=== PATIENT | male | born 1960 | race Caucasian/White ===

== ENCOUNTER 2020-08-10 22:01 | Inpatient (IN) | payer OTHER ==
[2020-08-10 22:13] VITALS: BMI 25.2
--- OUTSIDE RECORDS SUMMARY | 2020-08-10 22:17 | XMS ---
:1960 [facility] Support Name Relationship Address Phone UE, UNEMPLOYED Unavailable Unavailable Unavailable DARIELA GILLIS [address] [place] [address] AZDARIELA VAZQUEZ [address] [place] [address] JESSI GILLIS [address] [place] [address] UE Unavailable Unavailable Unavailable JESSI MCKEON [address] [place] [address] Re-disclosure Warning The records that you are about to access may contain information from federally- assisted alcohol or drug abuse programs. If such information is present, then the following federally mandated warning applies: This information has been disclosed to you from records protected by federal confidentiality rules (42 CFR part 2). The federal rules prohibit you from making any further disclosure of this information unless further disclosure is expressly permitted by the written consent of the person to whom it pertains or as otherwise permitted by 42 CFR part 2. A general authorization for the release of medical or other information is NOT sufficient for this purpose. The Federal rules restrict any use of the information to criminally investigate or prosecute any alcohol or drug abuse patient.The records that you are about to access may contain highly sensitive health information, the redisclosure of which is protected by Article 27-F of the [facility] Public Health law. If you continue you may haveaccess to information: Regarding HIV / AIDS; Provided by facilities licensed or operated by the [facility] Office of Mental Health; or Provided by the [facility] Office for People With Developmental Disabilities. If such information is present, then the following [facility] mandated warning applies: This information has been disclosed to you from confidential records which are protected by state law. State law prohibits you from making any further disclosure of this information without the specific written consent of the person to whom it pertains, or as otherwise permitted by law. Any unauthorized further disclosure in violation of state law may result in a fine or senior care sentence or both. A general authorization for the release of medical or other information is NOT sufficient authorization for further disclosure. Insurance Providers Payer name Policy type Policy ID Covered Covered libertarian's Policy P johnny / Coverage libertarian ID relationship to Almar[employer] Inf ormation type almaraz MEDICARE [id number] SP [id number] MEDICARE [id number] SP [id number]
--- NOTE | 2020-08-10 22:48 | PDOC ---
Attending Attestation - Resident Resident Name: James Moser - ED Attending Attestation I have performed the following: I have examined & evaluated the patient, The case was reviewed & discussed with the resident, I agree w/resident's findings & plan, Exceptions are as noted - HPI HPI: 08/11/20 04:46 See resident HPI - Physicial Exam PE: 08/11/20 04:46 Agree with documented exam - Medical Decision Making 08/11/20 04:46 Consider chf exacerbation, r/o acs, less likely pna, infection, complication of dissection f/u labs, ekg, cxr, trop, ct dispo per clinical course Discharge - Discharge Information Problems reviewed: Yes Clinical Impression/Diagnosis: Acute exacerbation of CHF (congestive heart failure) Condition: Improved - Follow up/Referral - Patient Discharge Instructions - Post Discharge Activity
[2020-08-10 23:18] LABS: BASO % 0.5 % (0-2.0); EOS % 4.5 % (0-4.5); HEMATOCRIT 38.7 % (35.4-49); HEMOGLOBIN 12.7 GM/dL (11.7-16.9); LYMPH % 10.4 % (8-40); MCH 26.8 pg (25.7-33.7); MCHC 32.7 g/dl (32.0-35.9); MEAN CELL VOLUME 81.9 fl (80-96); MEAN PLT VOLUME 7.5 fl (7.5-11.1); MONO % 10.1 % (3.8-10.2); NEUT % 74.5 % (42.8-82.8); PLATELET COUNT 180 K/MM3 (134-434); RBC 4.73 M/mm3 (4.00-5.60); WHITE BLOOD COUNT 10.2 K/mm3 (4.0-10.0)
[2020-08-10 23:27] LABS: INR 1.44 (0.83-1.09); PROTHROMBIN TIME (PATIENT) 17.1 SEC (9.7-13.0)
[2020-08-10 23:29] LABS: ACTIVATED PTT 30.8 SECONDS (25.2-36.5)
--- NOTE | 2020-08-10 23:56 | PDOC ---
History of Present Illness - General Chief Complaint: Congestive Heart Failure Stated Complaint: SOB Time Seen by Provider: 08/10/20 22:19 - History of Present Illness Initial Comments: 08/10/20 23:32 HPI: 59 y/o M with hx of HF, TAVR (2002), type B aortic dissection and thoracic aortic aneurysm (dxd 2018 and medically managed with BP control and [id number] CTA) presenting with 3weeks of progressively worsening SOB. Patient reports no specific triggers. Reports PND and orthopnea and inability to sleep flat. Reports cough with clear sputum. He denies chest pain, [place], syncope, n/v, fever, chills, abd pain, dysuria. Of note, patient has not gotten his routine CTA for the past 9months due to covid. PMHx: as noted above ROS: as noted SHx: Denies tobacco use; no alcohol use; no rec drugs Allergies: NKDA PCP: Bibi Eric Cardio: Anirudh Watts ROS: GENERAL/CONSTITUTIONAL: No fever or chills. No weakness. HEAD, EYES, EARS, NOSE AND THROAT: No change in vision. No ear pain or discharge. No sore throat. CARDIOVASCULAR: No chest pain; + shortness of breath RESPIRATORY: +cough; no wheezing, or hemoptysis. GASTROINTESTINAL: No nausea, vomiting, diarrhea or constipation. GENITOURINARY: No dysuria, frequency, or change in urination. MUSCULOSKELETAL: No joint or muscle swelling or pain. No neck or back pain. SKIN: No rash NEUROLOGIC: No headache, vertigo, loss of consciousness, or change in strength/sensation. ENDOCRINE: No increased thirst. No abnormal weight change HEMATOLOGIC/LYMPHATIC: No anemia, easy bleeding, or history of blood clots. ALLERGIC/IMMUNOLOGIC: No hives or skin allergy. PE: GENERAL: Awake, alert, and fully oriented, no acute distress HEAD: No signs of trauma, normocephalic, atraumatic EYES: EOMI, sclera anicteric, conjunctiva clear ENT: Auricles normal inspection, hearing grossly normal, nares patent, oropharynx clear without exudates. Moist mucosa NECK: Normal ROM, no lymphadenopathy LUNGS: No increased work of breathing, symmetrical chest rise, BL basilar rales HEART: Regular rate, regular rhythm, normal S1 and S2, no murmur, peripheral pulses 2+ and equal bilaterally. ABDOMEN: Soft, nondistended, nontender. No guarding, no rebound. No masses. No CVAT MUSCULOSKELETAL: FROM NEUROLOGICAL: Cranial nerves II through XII grossly intact. Normal speech, stable gait, no focal sensorimotor deficits SKIN: Warm, Dry, normal turgor, no rashes or lesions noted Past History - Medical History Allergies/Adverse Reactions: Allergies Allergy/AdvReac Type Severity Reaction Status Date / Time No Known Allergies Allergy Verified 08/10/20 23:15 Home Medications: Ambulatory Orders Aspirin [Aspirin EC] 81 mg PO DAILY 08/10/20 Atorvastatin Ca [Lipitor] 20 mg PO HS 08/10/20 Furosemide 40 mg PO DAILY 08/10/20 Metoprolol Tartrate [Lopressor] 100 mg PO BID 08/10/20 Niacin*ER* [Niaspan (Non-Formulary) -] 1 tab PO BID 08/10/20 Sacubitril/Valsartan [Entresto 49 mg-51 mg Tablet] 1 each PO BID 08/10/20 Cardiac Disorders: Yes (CHF) COPD: No - Surgical History Cardiac Surgery: Yes (aortic rep) - Psycho-Social/Smoking History Smoking History: Former smoker Have you smoked in the past 12 months: No If you are a former smoker, when did you quit?: 2001 Information on smoking cessation initiated: No - Substance Abuse Hx (Audit-C & DAST Scrn) How often the patient has a drink containing alcohol: Never Score: In Men: 4 or > Positive; In Women: 3 or > Positive: 0 Screen Result (Pos requires Nsg. Audit-10AR): Negative In the last yr the pt used illegal drug/Rx for NonMed reason: No Score: Yes response is considered Positive: 0 Screen Result (Positive result requires Nsg. DAST-10): Negative *Physical Exam - Vital Signs Last Vital Signs Temp Pulse Resp BP Pulse Ox 98 F 86 19 106/45 L 98 08/10/20 22:08 08/10/20 22:08 08/10/20 22:08 08/10/20 22:08 08/10/20 22:08 ED Treatment Course - LABORATORY CBC & Chemistry Diagram: 08/10/20 23:11 08/10/20 23:11 - ADDITIONAL ORDERS Additional order review: Laboratory Results 08/10/20 08/10/20 23:11 23:11 WBC 10.2 H RBC 4.73 Hgb 12.7 Hct 38.7 MCV 81.9 MCH 26.8 MCHC 32.7 RDW 17.0 H Plt Count 180 MPV 7.5 Absolute Neuts (auto) 7.6 Neutrophils % 74.5 Lymphocytes % 10.4 Monocytes % 10.1 Eosinophils % 4.5 Basophils % 0.5 Nucleated RBC % 0 PT with INR 17.10 H INR 1.44 H PTT (Actin FS) 30.8 08/10/20 23:11 RBC 4.73 MCV 81.9 MCHC 32.7 RDW 17.0 H MPV 7.5 Neutrophils % 74.5 Lymphocytes % 10.4 Monocytes % 10.1 Eosinophils % 4.5 Basophils % 0.5 - RADIOLOGY Radiology Studies Ordered: Category Date Time Status CTA CHEST ABD PEL W/WO CONT [CT] Stat CT Scan 08/10/20 22:51 Ordered CXRPORT [CHEST X-RAY PORTABLE*] [RAD] Stat Radiology 08/10/20 22:33 Ordered Medical Decision Making - Medical Decision Making 08/11/20 03:34 59 y/o M with hx of HF, TAVR (2001), type B aortic dissection and thoracic aortic aneurysm (dxd 2018 and medically managed with BP control and [id number] CTA) presenting with 3weeks of progressively worsening SOB associated with cough, orthopnea, and PND. BP106/45 HR 86 sats 98%, AF. PE with bibasilar rales. DDx includes ACS, CHF exac, PNA, dissection. -cbc, cmp, coags, card prof, ekg, cxr, CTA -lasix 08/11/20 03:42 CXR with cephalization and increased vascular markings; no effuison or consolidation ekg at 22:58 nsr with winston in v3 and avr with depression in 2, v5, v6 and twi in 2, v5, v6; trop negative; patient still denying any chest pain, jaw pain, arm pain; sxs improved following lasix 08/11/20 03:45 rpt ekg 00:11 nsr with no winston but persistent std in v5,v6 and persistent twi in 2, v5, v6 and now v6 showing dynamic changes, PVCs present; patient still completely asx with no chest pain 08/11/20 03:49 ekg 0224 nsr unchanged from 0011; rpt trops negative; pt remains asx admitted to tele under dr anne for chf exac Discharge - Discharge Information Problems reviewed: Yes Clinical Impression/Diagnosis: Acute exacerbation of CHF (congestive heart failure) Condition: Improved - Admission Yes - Follow up/Referral Referrals: Bibi Eric MD [Primary Care Provider] - - Patient Discharge Instructions - Post Discharge Activity
[2020-08-10] MEDS ORDERED: FUROSEMIDE 40 MG/4 ML INJECTABLE VIAL IVPUSH ONE (23:58)
[2020-08-10] MEDS ORDERED: FUROSEMIDE 40 MG/4 ML INJECTABLE VIAL ONE (23:58)
[2020-08-11 00:02] LABS: ALBUMIN 3.4 g/dl (3.4-5.0); BILIRUBIN,TOTAL 0.8 mg/dL (0.2-1); BLOOD UREA NITROGEN 27.2 mg/dL (7-18); CALCIUM 8.8 mg/dL (8.5-10.1); CREATININE 1.3 mg/dL (0.55-1.3); MAGNESIUM 2.3 mg/dL (1.8-2.4); POTASSIUM 4.6 mmol/L (3.5-5.1); TOT PROT 7.2 g/dl (6.4-8.2)
--- NOTE | 2020-08-11 03:08 | PN ---
Teaching Attending Note Name of Resident: Ivet Kelley ATTENDING PHYSICIAN STATEMENT I saw and evaluated the patient. I reviewed the resident's note and discussed the case with the resident. I agree with the resident's findings and plan as documented. SUBJECTIVE: Patient is 59 year old man with a PMH of HFrEF, HLD, TAVR (2001) and Type B aortic dissection and thoracic aortic aneurysm (diagnosed in 2018 and medically managed with BP control and q 3month CTA) presenting with 3 weeks of progressively worsening SOB. Patient reports no specific triggers. Has associated PND and orthopnea and inability to sleep flat. Of note, patient has not gotten his routine CTA for the past 9 months due to the COVID-19 pandemic. Patient reports cough with clear sputum and associated left arm/shoulder pain. He denies chest pain, headache, syncope, abdominal pain, headache, palpitations, dizziness, fever, chills, nausea, vomiting, diarrhea, constipation, dysuria, frequency, urgency, melena, hematochezia or hematuria. Former smoker. Denies alcohol, tobacco or illicit drug use. No sick contacts or recent travels. Family history of heart disease in father and brother. OBJECTIVE: Alert Vital Signs Period Temp Pulse Resp BP Sys/Leyva Pulse Ox Last 24 Hr 98 F 83-86 19-20 106-108/45-72 98-98 HEENT: No Jaundice, eye redness or discharge, PERRLA, EOMI. Normocephalic, atraumatic. External ears are normal and hearing is grossly intact. No nasal discharge. Neck: Supple, nontender. No palpable adenopathy or thyromegaly. No JVD Chest: Good effort. Bibasilar rales. Clear to percussion. Heart: Regular. No S3, rub or murmur Abdomen: Not distended, soft, nontender and no HSM. No rebound or guarding. Normal bowel sounds. Ext: Peripheral pulses intact. No leg edema. Skin: Warm and dry. No petechiae, rash or ecchymosis. Neuro: Alert. Oriented x3. CN 2-12 grossly intact. Sensation grossly intact in all four extremities and DTR are symmetric. Psych: Appropriate mood and affect. Good insight. Home Medications Medication Instructions Recorded Aspirin [Aspirin EC] 81 mg PO DAILY 08/10/20 Atorvastatin Ca [Lipitor] 20 mg PO HS 08/10/20 Furosemide 40 mg PO DAILY 08/10/20 Metoprolol Tartrate [Lopressor] 100 mg PO BID 08/10/20 Niacin*ER* [Niaspan 1 tab PO BID 08/10/20 (Non-Formulary) -] Sacubitril/Valsartan [Entresto 49 1 each PO BID 08/10/20 mg-51 mg Tablet] Abnormal Lab Results 08/10/20 08/10/20 08/10/20 23:11 23:11 23:11 WBC 10.2 H RDW 17.0 H PT with INR 17.10 H INR 1.44 H BUN 27.2 H Random Glucose 116 H B-Natriuretic Peptide 7702.0 H Current Medications Generic Name Dose Route Start Last Admin Trade Name Freq PRN Reason Stop Dose Admin Enoxaparin Sodium 40 mg 08/11/20 10:00 Lovenox - SQ DAILY LANEY Furosemide 40 mg 08/11/20 06:30 08/11/20 06:30 Lasix Injection - IVPUSH Not Given DAILY LANEY ASSESSMENT AND PLAN: 1. CHF exacerbation - No obvious precipitating factor. Urinalysis pending. CXR shows cardiomegaly with increased interstitial markings, unfolded aorta and sternotomy dilan. CTA of chest/abdomen/pelvis was not completed because the machine broke down. Viral testing for COVID-19 ordered and patient placed on airborne, droplet and contact isolation. EKG shows NSR at 85/minute, LVH, PVCs and QTc 497 with nonspecfic T wave changes. Not significantly changed compared to prior EKG. Initial troponin is negative. Will avoid drugs that may prolong QTc. Will admit to telemetry, get urinalysis, trend troponin, repeat EKG, treat with IV Lasix, get ECHO, restrict dietary salt intake, monitor renal function, monitor and replete electrolytes, get daily weight and consult Cardiology. Will continue comprehensive care for all of patients comorbid conditions. 2. DVT prophylaxis - Lovenox 40 mg SQ q 24 hours. 3. Advance directives - Full code
--- OUTSIDE RECORDS SUMMARY | 2020-08-11 04:00 | XMS ---
:1960 [facility] Support Name Relationship Address Phone UE, UNEMPLOYED Unavailable Unavailable Unavailable DARIELA GILLIS [address] [place] [address] AZDARIELA VAZQUEZ [address] [place] [address] JESSI GILLIS [address] [place] [address] UE Unavailable Unavailable Unavailable JESSI MCKEON [address] [place] [address] Re-disclosure Warning The records that you are [...] is protected by Article 27-F of the [facility] Public Health law. If you continue you may haveaccess to information: Regarding HIV / AIDS; Provided by facilities licensed or operated by the [facility] Office of Mental Health; or Provided by the [facility] Office for People With Developmental Disabilities. If such information is present, then the following [facility] mandated warning applies: This information has been [...] law may result in a fine or fci sentence or both. A general authorization for the release of medical or other information is NOT sufficient authorization for further disclosure. Insurance Providers Payer name Policy type Policy ID Covered Covered green party's Policy P johnny / Coverage green party ID relationship to [employer]mar[employer] Inf ormation type almaraz MEDICARE [id number] SP [id number] MEDICARE [id number] SP [id number]
--- NOTE | 2020-08-11 05:13 | HP ---
CHIEF COMPLAINT: Dyspnea, cough PCP: Dr. Bibi Eric, Cardio: Dr. Anirudh Watts HISTORY OF PRESENT ILLNESS: Naz is a 59 year old man with PMH aortic valve replacement (2001), type B aortic dissection diagnosed in 2018 that is managed with BP and CTA every 3 months) presenting with worsening dyspnea and cough. He states dyspnea began 3 weeks ago, and has progressed within the last weeks to the point he is no longer walking much even within his home. He also describes worsening orthopnea, is now sleeping upright in his arm chair in the living room. Around the same time the dyspnea began to worsen, he began to cough and started bringing up whitish colored sputum that is frequently tinged with streaks of blood. Yesterday he began having episodes of severe left arm pain and a feeling of associated 'heaviness in the arm', pain rated 10/10, lasting for a few minutes then subsiding. This continued throughout the day yesterday, and was very worrisome for the patient, which prompted the ED visit. He denies fever, chills, headache, lightheadedness, abdominal pain, vomiting, diarrhea, hematochezia, melena. He has not had his CTA done (for surveillance of the aortic dissection for the past 9 months due to fears of COVID. ER course was notable for: - Stable vitals: T98, BP 108/72, HR 83, O2 SAT 98 on room air - Labs notable for elevated BNP to 7000+, mild white count 10.2, BUN 27.2, Creatinine 1.3 - CXR: cardiomegaly and increased vascular markings - EKG with ST depressions and t wave inversions in V5, V6 - Administration of Lasix Recent Travel:no PAST MEDICAL HISTORY: HF Type B aortic dissection and thoracic aortic aneurysm (diagnosed 2018, medically managed, does CTA every 3 mo) PAST SURGICAL HISTORY: TAVR Social History: Smoking:no Alcohol:NO Drugs:NO Allergies No Known Allergies Allergy (Verified 08/10/20 23:15) HOME MEDICATIONS: Home Medications Medication Instructions Recorded Aspirin [Aspirin EC] 81 mg PO DAILY 08/10/20 Atorvastatin Ca [Lipitor] 20 mg PO HS 08/10/20 Furosemide 40 mg PO DAILY 08/10/20 Metoprolol Tartrate [Lopressor] 100 mg PO BID 08/10/20 Niacin*ER* [Niaspan 1 tab PO BID 08/10/20 (Non-Formulary) -] Sacubitril/Valsartan [Entresto 49 1 each PO BID 08/10/20 mg-51 mg Tablet] REVIEW OF SYSTEMS SEE HPI PHYSICAL EXAMINATION Vital Signs - 24 hr 08/10/20 08/11/20 22:08 03:29 Temperature 98 F Pulse Rate 86 Pulse Rate [ 83 Left] Respiratory 19 20 Rate Blood Pressure 106/45 L Blood Pressure 108/72 [Left Arm] O2 Sat by Pulse 98 98 Oximetry (%) GENERAL: Sleeping in no acute distress. HEAD: Normal with no signs of trauma. EYES: Pupils equal, round and reactive to light EARS, NOSE, THROAT: Ears normal, nares patent, oropharynx clear without exudates. NECK: Normal range of motion, supple without lymphadenopathy LUNGS: Breath sounds equal, clear to auscultation bilaterally. HEART: Regular rate and rhythm with diastolic murmur at the right sternal border . ABDOMEN: Soft, nontender, not distended, normoactive bowel sounds, no guarding, no rebound, no masses. UPPER EXTREMITIES: 2+ pulses, warm, well-perfused. No cyanosis. No clubbing. No peripheral edema. LOWER EXTREMITIES: 2+ pulses, warm, well-perfused. No calf tenderness. No peripheral edema. PSYCHIATRIC: Cooperative. Good eye contact. Appropriate mood and affect. Laboratory Results - last 24 hr 08/10/20 08/10/20 08/10/20 23:11 23:11 23:11 WBC 10.2 H RBC 4.73 Hgb 12.7 Hct 38.7 MCV 81.9 MCH 26.8 MCHC 32.7 RDW 17.0 H Plt Count 180 MPV 7.5 Absolute Neuts (auto) 7.6 Neutrophils % 74.5 Lymphocytes % 10.4 Monocytes % 10.1 Eosinophils % 4.5 Basophils % 0.5 Nucleated RBC % 0 PT with INR 17.10 H INR 1.44 H PTT (Actin FS) 30.8 Sodium 137 Potassium 4.6 Chloride 104 Carbon Dioxide 24 Anion Gap 9 BUN 27.2 H Creatinine 1.3 Est GFR (CKD-EPI)AfAm 69.22 Est GFR (CKD-EPI)NonAf 59.72 Random Glucose 116 H Calcium 8.8 Magnesium 2.3 Total Bilirubin 0.8 AST 26 ALT 46 Alkaline Phosphatase 80 Creatine Kinase 154 Creatine Kinase Index 1.1 CK-MB (CK-2) 1.7 Troponin I 0.03 B-Natriuretic Peptide 7702.0 H Total Protein 7.2 Albumin 3.4 08/11/20 02:12 WBC RBC Hgb Hct MCV MCH MCHC RDW Plt Count MPV Absolute Neuts (auto) Neutrophils % Lymphocytes % Monocytes % Eosinophils % Basophils % Nucleated RBC % PT with INR INR PTT (Actin FS) Sodium Potassium Chloride Carbon Dioxide Anion Gap BUN Creatinine Est GFR (CKD-EPI)AfAm Est GFR (CKD-EPI)NonAf Random Glucose Calcium Magnesium Total Bilirubin AST ALT Alkaline Phosphatase Creatine Kinase Creatine Kinase Index CK-MB (CK-2) Troponin I 0.03 B-Natriuretic Peptide Total Protein Albumin ASSESSMENT/PLAN: Naz is a 59 year old man with PMH aortic valve replacement (2001), type B aortic dissection diagnosed in 2018 that is managed with BP and CTA every 3 months) presenting with worsening dyspnea and cough, being admitted with CHF exacerbation. #CHF exacerbation - CXR: cardiomegaly and increased vascular markings - BNP elevated to 7000+ - Responded to Lasix in ED - One time does of 40 Lasix ordered for this morning 08/11 - Cardio consulted - f/u third troponin - ECHO - Daily weights #Type B aortic dissection and thoracic aortic aneurysm - Diagnosed 2017; treated with metoprolol and CTA surveillance every 3 months - Has not had CTA in 9 months (due to COVID fears) - F/u CTA #DONALD - Creatinine 1.3 - F/U UA DVT prophylaxis: Lovenox FEN - No standing fluids - monitor electrolytes - Low sodium diet Dispo: tele FULL CODE Family Medical History Family History: As Documented Visit type - Emergency Visit Emergency Visit: Yes ED Registration Date: 08/11/20 Care time: The patient presented to the Emergency Department on the above date and was hospitalized for further evaluation of their emergent condition. - New Patient This patient is new to me today: Yes Date on this admission: 08/11/20 - Critical Care Critical Care patient: No ATTENDING PHYSICIAN STATEMENT I saw and evaluated the patient. I reviewed the resident's note and discussed the case with the resident. I agree with the resident's findings and plan as documented. SUBJECTIVE: OBJECTIVE: ASSESSMENT AND PLAN:
[2020-08-11 06:30] LABS: URINE APPEARANCE CLEAR; URINE BILIRUBIN NEGATIVE (NEGATIVE); URINE COLOR YELLOW; URINE GLUCOSE (UA) NEGATIVE (NEGATIVE); URINE KETONE NEGATIVE (NEGATIVE); URINE LEUK ESTERASE NEGATIVE (NEGATIVE); URINE NITRITE NEGATIVE (NEGATIVE); URINE PROTEIN NEGATIVE (NEGATIVE); URINE UROBILINOGEN 0.2 mg/dL (0.2-1.0)
[2020-08-11] MEDS ORDERED: FUROSEMIDE 40 MG/4 ML INJECTABLE VIAL IVPUSH SCH (06:30)
--- NOTE | 2020-08-11 06:50 | CON.CARD ---
Consult - Smoking History Smoking history: Former smoker Have you smoked in the past 12 months: No If you are a former smoker, when did you quit?: 2001 Home Medications - Allergies Allergies/Adverse Reactions: Allergies Allergy/AdvReac Type Severity Reaction Status Date / Time No Known Allergies Allergy Verified 08/10/20 23:15 - Home Medications Home Medications: Ambulatory Orders Aspirin [Aspirin EC] 81 mg PO DAILY 08/10/20 Atorvastatin Ca [Lipitor] 20 mg PO HS 08/10/20 Furosemide 40 mg PO DAILY 08/10/20 Metoprolol Tartrate [Lopressor] 100 mg PO BID 08/10/20 Niacin*ER* [Niaspan (Non-Formulary) -] 1 tab PO BID 08/10/20 Sacubitril/Valsartan [Entresto 49 mg-51 mg Tablet] 1 each PO BID 08/10/20 Vital Signs: Vital Signs Temperature 98 F 08/10/20 22:08 Pulse Rate 88 08/11/20 06:19 Respiratory Rate 20 08/11/20 06:19 Blood Pressure 101/46 L 08/11/20 06:19 O2 Sat by Pulse Oximetry (%) 97 08/11/20 06:19 - Other Data Labs, Other Data: CBC, BMP 08/10/20 23:11 08/10/20 23:11 INR, PTT INR 1.44 (0.83-1.09) H 08/10/20 23:11 Troponin, BNP 08/10/20 08/11/20 23:11 02:12 Troponin I 0.03 0.03 B-Natriuretic Peptide 7702.0 H Troponin, BNP 08/10/20 08/11/20 23:11 02:12 Troponin I 0.03 0.03 B-Natriuretic Peptide 7702.0 H
--- NOTE | 2020-08-11 07:08 | CON.CARD ---
Consult Consult Specialty:: Cardiology Referred by:: Dr Tang Reason for Consultation:: CHF - History of Present Illness Chief Complaint: SOB and cough History of Present Illness: 59M PMH bio AVR 2002 and chronic type B aortic dissection diagnosed in 2018 under surveillance presents to ER with 1-2 weeks increased PEACE, orthopnea and cough. No fever/chills/edema/chest pain/syncope/palps/ no prior hx CAD. BNP markedly elevated. Clinically mildly improved after receiving a dose of 40mg IV Lasix yesterday evening in ER currently with O2 saturation 97% RA. Has had to sleep on several pillows, not usual for him . 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: Alzheimer's, CVA, Dementia, Migraine, Multiple Sclerosis, Peripheral Neuropathy, Parkinson's, Seizure, Syncope, TIA, Vertigo, Other Cardio/Vascular: Yes: Other (AVR/ type B dissection) Pulmonary: No: Asthma, Bronchitis, Cancer, COPD, O2 Dependent, Pneumonia, Previously Intubated, Pulmonary Embolus, Pulmonary Fibrosis, Sleep Apnea, Other Gastrointestinal: No: Ascites, Cancer, Constipation, Crohn's Disease, Div erticulitis, Diverticulosis, Esophageal Varices, Gastritis, GERD, GI Bleed, Hemorrhoids, Hiatal Hernia, Inflamatory Bowel Disease, Irritable Bowel Disease, Pancreatitis, Peptic Ulcer Disease, Ulcerative Colitis, Other Hepatobiliary: No: Cirrhosis, Cholelithiasis, Cholecystitis, Choledocholithiasis, Hepatitis A, Hepatitis B, Hepatitis C, Other Renal/: No: Renal Failure, Renal Inusuff, BPH, Cancer, Hematuria, Hemodialysis, Neurogenic Bladder, Renal Calculi, UTI, Other Heme/Onc: No: Anemia, B12 Deficiency, Bleeding Disorder, Cancer, Current Chemotherapy, Current Radiation Therapy, Hemochromatosis, Hypercoaguable State, Myeloproliferative Synd, Sickle Cell Disease, Sickle Cell Trait, Thrombocytopenia, Other Infectious Disease: No: AIDS, C-Diff, Herpes Zoster, HIV, MRSA, STD's, Tuberculosis, VREF, Other Psych: No: Addictions, Anxiety, Bipolar, Depression, Panic, Psychosis, Schizophrenia, Other Musculoskeletal: No: Bursitis, Chronic low back pain, Hemiparesis, Hemiplegia, Osteoarthritis, Paraplegia, Other Rheumatology: No: Fibromyalgia, Gout, Lupus, Rheumatoid Arthritis, Sarcoidosis, Vasculitis, Other ENT: No: Allergic Rhinitis, Sinusitis, Other - Past Surgical History Past Surgical History: Yes: Valve Replacement - Alcohol/Substance Use Hx Alcohol Use: No History of Substance Use: reports: None - Smoking History Smoking history: Former smoker Have you smoked in the past 12 months: No If you are a former smoker, when did you quit?: 2001 - Social History Usual Living Arrangement: Other (with brother) Occupation: Disabled History of Recent Travel: No Home Medications - Allergies Allergies/Adverse Reactions: Allergies Allergy/AdvReac Type Severity Reaction Status Date / Time No Known Allergies Allergy Verified 08/10/20 23:15 - Home Medications Home Medications: Ambulatory Orders Aspirin [Aspirin EC] 81 mg PO DAILY 08/10/20 Atorvastatin Ca [Lipitor] 20 mg PO HS 08/10/20 Furosemide 40 mg PO DAILY 08/10/20 Metoprolol Tartrate [Lopressor] 100 mg PO BID 08/10/20 Niacin*ER* [Niaspan (Non-Formulary) -] 1 tab PO BID 08/10/20 Sacubitril/Valsartan [Entresto 49 mg-51 mg Tablet] 1 each PO BID 08/10/20 Family Medical History Family History: Unremarkable Review of Systems Findings/Remarks: see HPI - Review of Systems Constitutional: reports: No Symptoms Eyes: reports: No Symptoms HENT: reports: No Symptoms Neck: reports: No Symptoms Cardiovascular: reports: Shortness of Breath Respiratory: reports: Cough, Exercise Intolerance, Orthopnea Gastrointestinal: denies: No Symptoms, Abdominal Pain, Bloating, Constipation, Diarrhea, Dysphagia, Indigestion, Melena, Nausea, Rectal Bleeding, Vomiting, Vomiting Blood, Other Genitourinary: denies: No Symptoms, Burning, Discharge, Dysuria, Flank Pain, Frequency, Hematuria, Incontinence, Lesions, Menses, Pain, Testicular Mass, Testicular Pain, Testicular Swelling, Urgency, Vaginal Bleeding, Other Breasts: denies: No Symptoms Reported, See HPI, Breast Implants, Discharge from Nipple, Lumps, Pain, Skin Changes, Other Musculoskeletal: denies: No Symptoms, Back Pain, Crepitus, Decreased ROM, Extremity Pain, Joint Pain, Joint Swelling, Muscle Pain, Muscle Cramps, Muscle Weakness, Other Integumentary: denies: No Symptoms, Blister, Bruising, Change in Color, Eczema, Erythema, Incision, Lesions, Lump, Pallor, Pruritis, Rash, Wound, Other Neurological: denies: No Symptoms, Change in LOC, Change in Speech, Confusion, Dizziness, Headache, Incoordination, Numbness, Parasthesia, Pre-Existing Deficit, Seizure, Syncope, Tremors, Unsteady Gait, Weakness, Other Endocrine: denies: No Symptoms, Excessive Sweating, Flushing, Increased Hunger, Increased Thirst, Intolerance to Cold, Intolerance to Heat, Unexplained Weight Gain, Unexplained Weight Loss, Other Hematology/Lymphatic: denies: No Symptoms, Easily Bruised, Excessive Bleeding, Swollen Glands, Other Psychiatric: denies: No Symptoms, Altered Sleep Pattern, Anxiety, Depression, Hallucinations, Panic, Paranoia, Suicidal, Other - Risk Factors Known Risk Factors: Yes: Age, Hypercholesterolemia, Hypertension, Smoking Vital Signs: Vital Signs Temperature 98 F 08/10/20 22:08 Pulse Rate 88 08/11/20 06:19 Respiratory Rate 20 08/11/20 06:19 Blood Pressure 101/46 L 08/11/20 06:19 O2 Sat by Pulse Oximetry (%) 97 08/11/20 06:19 Constitutional: Yes: No Distress, Calm Eyes: Yes: Conjunctiva Clear HENT: Yes: Atraumatic, Normocephalic Neck: Yes: Trachea Midline Respiratory: Yes: Other (bibasilar rales 1/3 up) Gastrointestinal: Yes: Soft Cardiovascular: Yes: Regular Rate and Rhythm JVD: Yes Heart Sounds: Yes: S1, S2 Murmur: Yes: Systolic Murmur, Diastolic Murmur, Grade 2 Edema: No Peripheral Pulses WNL: Yes Neurological: Yes: Alert, Oriented ...Motor Strength: WNL Psychiatric: Yes: WNL - Other Data Labs, Other Data: CBC, BMP 08/10/20 23:11 08/10/20 23:11 INR, PTT INR 1.44 (0.83-1.09) H 08/10/20 23:11 Troponin, BNP 08/10/20 08/11/20 23:11 02:12 Troponin I 0.03 0.03 B-Natriuretic Peptide 7702.0 H Troponin, BNP 08/10/20 08/11/20 23:11 02:12 Troponin I 0.03 0.03 B-Natriuretic Peptide 7702.0 H Serial ecgs were performed in ER and were personally reviewed. They show NSR with lvh, lae, nsst I, avL, avF, v4-v6 that were unchanged Echo: Pending Imaging - Results Chest X-ray: Report Reviewed, Image Reviewed Cat Scan: Pending EKG: Image Reviewed Assessment/Plan IMP: Bio AVR Chronic type B dissection Acute CHF: systolic vs diastolic? Systolic and diastolic murmurs c/w likely /AR REC: 1. Bio AVR: -Cont ASA 81mg daily -Echo to evaluate EF and prosthetic valve fx 2. Chronic type B dissection: -under surveillance as outpatient -F/u official CTA result done in ER last night -Cont beta elizabeth, would reduce dose by 50% in light of acute CHF decompensation and borderline low BPS with need for additional IV Lasix -Once euvolemic and BP stable/ can resume full home dose especially if EF normal 3. Acute CHF: -Echo today for EF assessment -IV Lasix -Daily weights and BMP on tele -Supp O2 -Hold entresto for now as we re-evaluate EF and diurese. Can resume in next 24- 48 hours pending clinical course and EF assessment 4. Systolic/diastolic murmurs: suspect /AR -Echo for prosthetic valve fx 5. Cough: likely due to decomp CHF -COVID swab pending
--- NOTE | 2020-08-11 08:16 | PDOC ---
*Physical Exam - Vital Signs Last Vital Signs Temp Pulse Resp BP Pulse Ox 97.5 F L 74 19 104/42 L 99 08/11/20 08:11 08/11/20 08:11 08/11/20 08:11 08/11/20 08:11 08/11/20 08:11 ED Treatment Course - LABORATORY CBC & Chemistry Diagram: 08/10/20 23:11 08/10/20 23:11 - ADDITIONAL ORDERS Additional order review: Laboratory Results 08/11/20 08/10/20 08/10/20 02:12 23:11 23:11 PT with INR 17.10 H INR 1.44 H PTT (Actin FS) 30.8 Sodium 137 Potassium 4.6 Chloride 104 Carbon Dioxide 24 Anion Gap 9 BUN 27.2 H Creatinine 1.3 Est GFR (CKD-EPI)AfAm 69.22 Est GFR (CKD-EPI)NonAf 59.72 Random Glucose 116 H Calcium 8.8 Magnesium 2.3 Total Bilirubin 0.8 AST 26 ALT 46 Alkaline Phosphatase 80 Creatine Kinase 154 Creatine Kinase Index 1.1 CK-MB (CK-2) 1.7 Troponin I 0.03 0.03 B-Natriuretic Peptide 7702.0 H Total Protein 7.2 Albumin 3.4 08/10/20 23:11 RBC 4.73 MCV 81.9 MCHC 32.7 RDW 17.0 H MPV 7.5 Neutrophils % 74.5 Lymphocytes % 10.4 Monocytes % 10.1 Eosinophils % 4.5 Basophils % 0.5 - Medications Given in the ED: ED Medications Discontinued Medications Generic Name Dose Route Start Last Admin Trade Name Freq PRN Reason Stop Dose Admin Furosemide 40 mg 08/10/20 23:58 08/11/20 00:10 Lasix Injection - IVPUSH 08/10/20 23:59 40 mg ONCE ONE Administration Medical Decision Making - Medical Decision Making CT reads showed unchanged aortic dissection from prior reads, 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 Pt seen by cardiology team. 08/11/20 08:15 Discharge - Discharge Information Problems reviewed: Yes Clinical Impression/Diagnosis: Acute exacerbation of CHF (congestive heart failure) Qualifiers: Heart failure type: unspecified Qualified Code(s): I50.9 - Heart failure, unspecified Condition: Improved - Follow up/Referral - Patient Discharge Instructions - Post Discharge Activity
[2020-08-11] MEDS ORDERED: FUROSEMIDE 40 MG/4 ML INJECTABLE VIAL ONE (08:22)
[2020-08-11] MEDS ORDERED: ENOXAPARIN NA (PORCINE) 40 MG/0.4 ML DISP.SYRIN SQ ONE (08:22)
[2020-08-11] MEDS ORDERED: ASPIRIN 81 MG CHEWABLE TABLETS PO SCH (10:00)
[2020-08-11] MEDS ORDERED: METOPROLOL TARTRATE 50 MG TABLET (FP) PO SCH (10:00)
[2020-08-11] MEDS ORDERED: ENOXAPARIN NA (PORCINE) 40 MG/0.4 ML DISP.SYRIN SQ SCH (10:00)
[2020-08-11] MEDS ORDERED: ASPIRIN 81 MG CHEWABLE TABLETS ONE (10:08)
[2020-08-11] MEDS ORDERED: METOPROLOL TARTRATE 50 MG TABLET (FP) ONE (10:09)
--- NOTE | 2020-08-11 10:32 | EKG ---
Test Reason : Blood Pressure : / mmHG Vent. Rate : 085 BPM Atrial Rate : 085 BPM P-R Int : 172 ms QRS Dur : 120 ms QT Int : 418 ms P-R-T Axes : 063 042 242 degrees QTc Int : 497 ms POOR DATA QUALITY, INTERPRETATION MAY BE ADVERSELY AFFECTED SINUS RHYTHM WITH OCCASIONAL PREMATURE VENTRICULAR COMPLEXES LEFT VENTRICULAR HYPERTROPHY WITH QRS WIDENING AND REPOLARIZATION ABNORMALITY ABNORMAL ECG Confirmed by ARMANDO MOORE MD ([id number]) on 08/11/2020 10:32:31 AM Referred By: Confirmed By:ARMANDO MOORE MD
--- NOTE | 2020-08-11 10:33 | EKG ---
Test Reason : Blood Pressure : / mmHG Vent. Rate : 084 BPM Atrial Rate : 084 BPM P-R Int : 154 ms QRS Dur : 108 ms QT Int : 400 ms P-R-T Axes : 016 020 209 degrees QTc Int : 472 ms POOR DATA QUALITY, INTERPRETATION MAY BE ADVERSELY AFFECTED NORMAL SINUS RHYTHM LEFT VENTRICULAR HYPERTROPHY WITH REPOLARIZATION ABNORMALITY ABNORMAL ECG WHEN COMPARED WITH ECG OF 10-AUG-2020 22:57, FUSION COMPLEXES ARE NO LONGER PRESENT PREMATURE VENTRICULAR COMPLEXES ARE NO LONGER PRESENT Confirmed by ARMANDO MOORE MD ([id number]) on 08/11/2020 10:32:56 AM Referred By: JESSIE Confirmed By:ARMANDO MOORE MD
--- NOTE | 2020-08-11 10:33 | EKG ---
Test Reason : Blood Pressure : / mmHG Vent. Rate : 088 BPM Atrial Rate : 088 BPM P-R Int : 180 ms QRS Dur : 120 ms QT Int : 400 ms P-R-T Axes : 052 035 171 degrees QTc Int : 484 ms SINUS RHYTHM WITH OCCASIONAL PREMATURE VENTRICULAR COMPLEXES AND FUSION COMPLEXES LEFT VENTRICULAR HYPERTROPHY WITH QRS WIDENING AND REPOLARIZATION ABNORMALITY ABNORMAL ECG NO PREVIOUS ECGS AVAILABLE Confirmed by ARMANDO MOORE MD ([id number]) on 08/11/2020 10:33:28 AM Referred By: Confirmed By:ARMANDO MOORE MD
--- NOTE | 2020-08-11 10:52 | ECHO ---
Version: 1 Name: ARIADNA GILLIS Exam: Adult Echocardiogram Study Date: 08/11/2020, 9:54 AM Age: 59 Years MMode/2D Measurements & Calculations IVSd: 0.97 cm LVIDs: 5.7 cm LVIDd: 6.7 cm LVPWd: 0.98 cm LAV (MOD-bp): 109.0 ml LVOT diam: 2.04 cm Ao root diam: 3.2 cm LA dimension: 4.5 cm Doppler Measurements & Calculations MV E max blayne: 156.0 cm/sec Med E/e': 22.4 MV A max blayne: 60.2 cm/sec Med Peak E' Blayne: 7.0 cm/sec MV E/A: 2.6 Lat E/e': 17.9 Lat Peak E' Blayne: 8.7 cm/sec MR max P.7 mmHg Ao max P.1 mmHg VANESA(I,D): 1.29 cm Ao mean P.1 mmHg LV V1 mean: 65.0 cm/sec Ao V2 max: 255.4 cm/sec LV V1 mean P.87 mmHg AI P1/2t: 154.4 msec TR max blayne: 326.9 cm/sec TR max P.8 mmHg Procedure The study was technically difficult with many images being suboptimal in quality. Left Ventricle The left ventricle is moderately dilated. Left ventricular systolic function is severely reduced. Ej ection Fraction = 30%. Regional wall motion abnormalities cannot be excluded due to limited visualization. There is moderate to severe global hypokinesis of the left ventricle. Right Ventricle The right ventricle is grossly normal size. The right ventricular systolic function is borderline re duced. Atria The left atrium is mildly dilated. Right atrial size is normal. Mitral Valve There is mild mitral valve thickening. There is mild mitral regurgitation. Tricuspid Valve The tricuspid valve is not well visualized, but is grossly normal. There is mild tricuspid regurgita tion. Right ventricular systolic pressure is elevated at 40-50mmHg. Aortic Valve There is a bioprosthetic aortic valve. The prosthetic aortic valve is well-seated. Mild valvular aor tic stenosis. Moderate to severe aortic regurgitation. Pulmonic Valve The pulmonic valve is not well seen, but is grossly normal. There is no pulmonic valvular stenosis. Trace pulmonic valvular regurgitation. Great Vessels The aortic root is normal size. Pericardium/Pleura There is no pericardial effusion. Summary Statements The left ventricle is moderately dilated. Left ventricular systolic function is severely reduced. Ejection Fraction = 30%. The right ventricular systolic function is borderline reduced. The left atrium is mildly dilated. There is mild mitral regurgitation. There is a bioprosthetic aortic valve. The prosthetic aortic valve is well-seated. Mild valvular aortic stenosis. Moderate to severe aortic regurgitation. MD Flores *Terence 08/11/2020, 10:51 AM Ordering Physician: Rosa Muhammad Performed By: Catarina Fenton
[2020-08-11 11:25] LABS: BASO % 0.6 % (0-2.0); EOS % 6.4 % (0-4.5); HEMATOCRIT 38.2 % (35.4-49); HEMOGLOBIN 12.2 GM/dL (11.7-16.9); LYMPH % 12.2 % (8-40); MCH 25.8 pg (25.7-33.7); MCHC 31.9 g/dl (32.0-35.9); MONO % 6.7 % (3.8-10.2); NEUT % 74.1 % (42.8-82.8); PLATELET COUNT 189 K/MM3 (134-434); RBC 4.72 M/mm3 (4.00-5.60); WHITE BLOOD COUNT 7.8 K/mm3 (4.0-10.0)
--- NOTE | 2020-08-11 11:34 | PN ---
Progress Note, Physician Chief Complaint: CHF exacerbation History of Present Illness: 59M PMH bio AVR 2002 and chronic type B aortic dissection diagnosed in 2018 under surveillance presents to ER with 1-2 weeks increased PEACE, orthopnea and cough. No fever/chills/edema/chest pain/syncope/palps/ no prior hx CAD. Seen by cardiology on IV furosemide Echo 08/11/20:Echo shows moderately dilated LV/ LVEF at 30%, RV systolic fxn is mildly reduced, mildly dilated left atrium, mild mitral regurgitation, mild prosthetic aortic valve stenosis and severe AR by pressure half time. - Current Medication List Current Medications: Active Medications Aspirin (Asa -) 81 mg PO DAILY [facility] Last Admin: 08/11/20 10:11 Dose: 81 mg Documented by: Enoxaparin Sodium (Lovenox -) 40 mg SQ DAILY [facility] Last Admin: 08/11/20 09:14 Dose: 40 mg Documented by: Furosemide (Lasix Injection -) 40 mg IVPUSH DAILY [facility] Last Admin: 08/11/20 06:30 Dose: Not Given Documented by: Metoprolol Succinate (Toprol Xl -) 50 mg PO BID [facility] Sacubitril/Valsartan (Entresto 24 Mg-26 Mg Tablet) 1 tab PO BID [facility] - Objective Vital Signs: Vital Signs Temperature 97.5 F L 08/11/20 08:11 Pulse Rate 74 08/11/20 08:11 Respiratory Rate 19 08/11/20 08:11 Blood Pressure 104/42 L 08/11/20 08:11 O2 Sat by Pulse Oximetry (%) 99 08/11/20 09:54 Constitutional: Yes: Well Nourished, No Distress, Calm Cardiovascular: Yes: Regular Rate and Rhythm Respiratory: Yes: CTA Bilaterally, Diminished (BLL) Gastrointestinal: Yes: Normal Bowel Sounds, Soft Genitourinary: Yes: WNL Musculoskeletal: Yes: Muscle Weakness Extremities: Yes: WNL Edema: No Peripheral Pulses WNL: Yes Neurological: Yes: Alert, Oriented Psychiatric: Yes: Alert, Oriented Labs: INR, PTT INR 1.44 (0.83-1.09) H 08/10/20 23:11 Problem List - Problems (1) Acute exacerbation of CHF (congestive heart failure) Assessment/Plan: -Seen by Cardiology -Echo:shows moderately dilated LV/ LVEF at 30%, RV systolic fxn is mildly reduced, mildly dilated left atrium, mild mitral regurgitation, mild prosthetic aortic valve stenosis and severe AR by pressure half time. -IV furosemide 40 mg daily -Toprol 50 mg po BID -Entresto 24/26 mg po bid -Tele monitoring -Low sodium diet -Daily weights -Life vest upon discharge Problems reviewed: Yes Code(s): I50.9 - HEART FAILURE, UNSPECIFIED Qualifiers: Heart failure type: unspecified Qualified Code(s): I50.9 - Heart failure, unspecified (2) Shortness of breath Assessment/Plan: -Pulmonary consult -COVID 19 PCR pending -Nasal O2 to keep Spo2>90% -Pt would need outpatient 6 month f/u and chest CT to follow pulmonary nodules Problems reviewed: Yes Code(s): R06.02 - SHORTNESS OF BREATH (3) Aortic dissection distal to left subclavian Assessment/Plan: -CT surgery upon d/c Problems reviewed: Yes Code(s): I71.01 - DISSECTION OF THORACIC AORTA Assessment/Plan See problem list Pt being transferred to [facility]
[2020-08-11] MEDS ORDERED: FUROSEMIDE 40 MG/4 ML INJECTABLE VIAL IVPUSH ONE (11:45)
[2020-08-11 11:59] LABS: ALBUMIN 3.3 g/dl (3.4-5.0); BILIRUBIN,TOTAL 0.9 mg/dL (0.2-1); BLOOD UREA NITROGEN 24.3 mg/dL (7-18); CALCIUM 8.6 mg/dL (8.5-10.1); CREATININE 1.1 mg/dL (0.55-1.3); MAGNESIUM 1.9 mg/dL (1.8-2.4); POTASSIUM 3.6 mmol/L (3.5-5.1); TOT PROT 7.1 g/dl (6.4-8.2)
--- NOTE | 2020-08-11 14:48 | CON.PULM ---
Consult Consult Specialty:: PULM/CCM Referred by:: DEEDEE Reason for Consultation:: SOB - History of Present Illness Chief Complaint: SOB & Cough History of Present Illness: 59 M, Aortic valve replacement (2001), type B aortic dissection diagnosed in 2018. (apparently CTA every 3 months). Admitted via the ER due to increasing dyspnea and cough over the course of 3 weeks. Generalized body aches and malaise. He also reports increasing orthopnea and is now sleeping upright in his arm chair. No travel history or sick contacts. Reports having episodes of severe left arm pain and a feeling of associated "heaviness in his arm". No recent CTA due to COVID19. No hemoptysis. 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: Alzheimer's, CVA, Dementia, Migraine, Multiple Sclerosis, Peripheral Neuropathy, Parkinson's, Seizure, Syncope, TIA, Vertigo, Other Cardio/Vascular: Yes: Other (AVR/ type B dissection) Pulmonary: No: Asthma, Bronchitis, Cancer, COPD, O2 Dependent, Pneumonia, Previously Intubated, Pulmonary Embolus, Pulmonary Fibrosis, Sleep Apnea, Other Gastrointestinal: No: Ascites, Cancer, Constipation, Crohn's Disease, Diverticulitis, Diverticulosis, Esophageal Varices, Gastritis, GERD, GI Bleed, Hemorrhoids, Hiatal Hernia, Inflamatory Bowel Disease, Irritable Bowel Disease, Pancreatitis, Peptic Ulcer Disease, Ulcerative Colitis, Other Hepatobiliary: No: Cirrhosis, Cholelithiasis, Cholecystitis, Choledocholithiasis, Hepatitis A, Hepatitis B, Hepatitis C, Other Renal/: No: Renal Failure, Renal Inusuff, BPH, Cancer, Hematuria, Hemodialysis, Neurogenic Bladder, Renal Calculi, UTI, Other Infectious Disease: No: AIDS, C-Diff, Herpes Zoster, HIV, MRSA, STD's, Tuberculosis, VREF, Other Psych: No: Addictions, Anxiety, Bipolar, Depression, Panic, Psychosis, Schizophrenia, Other Musculoskeletal: No: Bursitis, Chronic low back pain, Hemiparesis, Hemiplegia, Osteoarthritis, Paraplegia, Other Rheumatology: No: Fibromyalgia, Gout, Lupus, Rheumatoid Arthritis, Sarcoidosis, Vasculitis, Other ENT: No: Allergic Rhinitis, Sinusitis, Other - Past Surgical History Past Surgical History: Yes: Valve Replacement - Alcohol/Substance Use Hx Alcohol Use: No History of Substance Use: reports: None - Smoking History Smoking history: Former smoker Have you smoked in the past 12 months: No If you are a former smoker, when did you quit?: 2001 - Social History Usual Living Arrangement: Other (with brother) Occupation: Disabled History of Recent Travel: No Home Medications - Allergies Allergies/Adverse Reactions: Allergies Allergy/AdvReac Type Severity Reaction Status Date / Time No Known Allergies Allergy Verified 08/10/20 23:15 - Home Medications Home Medications: Ambulatory Orders Aspirin [Aspirin EC] 81 mg PO DAILY 08/10/20 Atorvastatin Ca [Lipitor] 20 mg PO HS 08/10/20 Furosemide 40 mg PO DAILY 08/10/20 Metoprolol Tartrate [Lopressor] 100 mg PO BID 08/10/20 Niacin*ER* [Niaspan (Non-Formulary) -] 1 tab PO BID 08/10/20 Sacubitril/Valsartan [Entresto 49 mg-51 mg Tablet] 1 each PO BID 08/10/20 Family Medical History Family History: Unremarkable Review of Systems - Review of Systems Constitutional: reports: Malaise. denies: Chills, Fever, Night Sweats, Unint entional Wgt. Loss Eyes: reports: No Symptoms HENT: reports: No Symptoms Neck: reports: No Symptoms Cardiovascular: reports: Chest Pain, Shortness of Breath. denies: Edema, Palpitations Respiratory: reports: Cough, Orthopnea, Snoring, SOB, SOB on Exertion. denies: Hemoptysis, Wheezing Gastrointestinal: reports: No Symptoms, Rectal Bleeding Breasts: reports: No Symptoms Reported Musculoskeletal: reports: No Symptoms Integumentary: reports: No Symptoms Neurological: reports: No Symptoms Endocrine: reports: No Symptoms Hematology/Lymphatic: reports: No Symptoms Psychiatric: reports: No Symptoms Physical Exam Vital Sings: Vital Signs Temperature 97.5 F L 08/11/20 08:11 Pulse Rate 89 08/11/20 11:37 Respiratory Rate 18 08/11/20 11:37 Blood Pressure 117/46 L 08/11/20 11:37 O2 Sat by Pulse Oximetry (%) 99 08/11/20 09:54 Constitutional: Yes: No Distress, Calm Eyes: Yes: Conjunctiva Clear, EOM Intact HENT: Yes: Atraumatic, Normocephalic Neck: Yes: Supple, Trachea Midline Cardiovascular: Yes: Regular Rate and Rhythm Respiratory: Yes: Cough, Diminished, Rhonchi, SOB, SOB on Exertion. No: Accessory Muscle Use, On Nasal O2, Rales, Stridor, Tachypnea, Wheezes ...Inspection: Yes: WNL ...Clubbing: No Gastrointestinal: Yes: Normal Bowel Sounds, Soft Renal/: Yes: WNL Musculoskeletal: Yes: WNL Extremities: Yes: WNL Edema: No Peripheral Pulses WNL: Yes Integumentary: Yes: WNL Neurological: Yes: WNL, Alert, Oriented ...Motor Strength: WNL Psychiatric: Yes: WNL, Alert, Oriented Labs: CBC, BMP 08/11/20 09:27 08/11/20 09:27 Imaging - Results Chest X-ray: Report Reviewed, Image Reviewed Cat Scan: Report Reviewed, Image Reviewed Problem List - Problems (1) Acute bronchitis Code(s): J20.9 - ACUTE BRONCHITIS, UNSPECIFIED (2) Acute exacerbation of CHF (congestive heart failure) Code(s): I50.9 - HEART FAILURE, UNSPECIFIED Qualifiers: Heart failure type: unspecified Qualified Code(s): I50.9 - Heart failure, unspecified (3) Aortic dissection distal to left subclavian Code(s): I71.01 - DISSECTION OF THORACIC AORTA (4) Shortness of breath Code(s): R06.02 - SHORTNESS OF BREATH Assessment/Plan BP control for dissection Supplemental O2 as needed Lasix Daily Follow I & O Daily weights VTE prophylaxis Monitor off ABX No smoking Monitor off systemic steroids Will need to compare previous CTA Will follow Thank you. Dr Lombardi
[2020-08-11 18:19] VITALS: BP 116/93; PULSE 89; TEMP 97.9
[2020-08-12] MEDS ORDERED: SACUBITRIL/VALSARTAN 24 MG-26 MG TABLET PO SCH (10:00)
== END 2020-08-11 18:24 | disposition short-term general hospital (02) | DRG 299 ==
LOC: JER 22:01 → JERBED 08-11 03:51 → MERGE 08-11 03:51
PROVIDERS: ADMIT Internal Medicine; ATTEND Family Medicine
DX: I71.01 Dissection of thoracic aorta (principal); I50.43 Acute on chronic combined systolic (congestive) and diastolic (congestive) heart failure; N17.9 Acute kidney failure, unspecified; I35.2 Nonrheumatic aortic (valve) stenosis with insufficiency
CPT/HCPCS: 36415; 71045-TC-FY; 71275-TC; 74174-TC; 80053; 81003; 82550; 82553; 83735; 83880; 84484; 85025; 85610; 85730; 93005; 93010; 93306-TC; 99285-25; C9803; U0003